=== PATIENT | female | born 1960 | race Hispanic/Latino ===

== ENCOUNTER 2017-05-14 11:00 | Emergency (ER) | payer OTHER, SELFPAY ==
[2017-05-14 12:00] LABS: Hematocrit 44.2 % (36.0-47.0); Mean Platelet Volume 8.5 fL (7.4-10.4); Red Blood Cell (RBC) Count 4.82 mill/uL (4.20-5.40); White Blood Cell (WBC) Count 5.4 thou/uL (4.8-10.8)
[2017-05-14] MEDS ORDERED: Morphine 4 MG/ML VIAL ONE (12:12)
[2017-05-14] MEDS ORDERED: Ondansetron HCl/PF 4 MG/2 ML Vial ONE (12:12)
[2017-05-14 12:13] LABS: ALT (SGPT) 23 U/L (8-55); AST (SGOT) 24 U/L (5-34); Alkaline Phosphatase 120 U/L (40-150); Anion Gap 13 mmol/L (10-20); BUN (Urea Nitrogen) 12 mg/dL (9.8-20.1); Bilirubin, Total 0.4 mg/dL (0.2-1.2); Calc. Creatinine Clearance 0 mL/min (70-130); Calcium 9.7 mg/dL (7.8-10.44); Carbon Dioxide 31 mmol/L (22-29); Chloride 99 mmol/L (98-107); Estimated GFR-MDRD 59; Globulin 4.2 g/dL (2.4-3.5); Protein, Total 7.9 g/dL (6.0-8.3)
[2017-05-14 12:17] LABS: Band 6 % (5-11); Myelocyte 1 % (0-0); Neutrophil 47 % (42-75); Reactive Lymphocytes 2 % (0-10)
--- NOTE | 2017-05-14 12:25 | RAD ---
CHEST ONE VIEW: History: Cough. Comparison: 12-01-05 FINDINGS: Lungs are clear. No pneumothorax or effusion. Cardiac silhouette and mediastinal contours are within normal limits. IMPRESSION: No acute cardiopulmonary process. POS: [facility]
[2017-05-14 12:44] LABS: Lactic Acid - Sepsis 1.6 mmol/L (0.5-2.2)
[2017-05-14 12:53] LABS: Troponin I Less than 0.010 ng/mL (< 0.028)
[2017-05-14 13:25] LABS: Bilirubin Moderate (Negative); Blood, Urine Large (Negative); Glucose, Urine (Dipstick) 500 mg/dL (Negative); Ketone, Urine 15 mg/dL (Negative); Nitrite Negative (Negative); Protein, Urine (Dipstick) 300 mg/dL (Neg-Trace)
[2017-05-14 13:29] LABS: Bacteria/HPF 1+ HPF (None Seen)
[2017-05-14 13:44] LABS: RBC/HPF GREATER THAN 50-TNTC HPF (0-3)
[2017-05-14 13:45] LABS: Hyaline Casts/LPF 0-3 HYALINE CAST LPF (0-3 Hyaline); Renal Epithelial None Seen HPF (0-3); Transitional Epithelial NONE SEEN HPF (0-3)
[2017-05-14] MEDS ORDERED: cefTRIAXone\\ROCEPHIN 2 GM in Sodium Chloride 0.9% 100 ML IVPB SCH (14:00)
--- NOTE | 2017-05-14 14:06 | CT ---
CT ABDOMEN AND PELVIS WITHOUT IV CONTRAST: Indication: Bilateral rib pain and hematuria. Comparison: Prior CT of the abdomen and pelvis dated 05-11-14, 02-23-08, 09-23-14. FINDINGS: The lung bases demonstrate some areas of subsegmental volume loss. Gallbladder is surgically absent. The unopacified liver, spleen, pancreas and adrenal glands are unre markable. There is a tiny 2.5 mm stone involving the inferior pole of the right kidney. There is a 2. 3 cm mixed density mass extending exophytically off the medial aspect of the lower pole of the right kidney. This measure 2.8 cm in its greatest craniocaudal dimension. The lesion has increased in size since 2007. There are some areas of internal macroscopic fat density. 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 No ureteral calculus or hydronephrosis is evident. There is a small calcification seen within the exp ected region of the uterus likely related to post-surgical change of prior partial hysterectomy. Ther e are surgical clips within the right lower quadrant of the abdomen which may reflect prior appendect don. There is a fat containing umbilical hernia. There is no evidence of bowel obstruction. There is some scattered degenerative and osteoarthritic change. No definite acute osseous abnormality is evident. IMPRESSION: 1. Enlarging mixed density mass extending exophytically off the inferior pole of the right kidney wit h areas of internal macroscopic fat suspicious for an enlarging renal angiomyolipoma. This measures u p to 2.8 cm. 2. Right nephrolithiasis. 3. Cholecystectomy, appendectomy, and hysterectomy. POS: ELKE
--- NOTE | 2017-05-16 11:19 | EKG ---
Test Reason : Blood Pressure : / mmHG Vent. Rate : 084 BPM Atrial Rate : 084 BPM P-R Int : 158 ms QRS Dur : 074 ms QT Int : 378 ms P-R-T Axes : 011 026 041 degrees QTc Int : 446 ms Normal sinus rhythm Normal ECG Confirmed by ELVER MAGALLANES M.D. ([id number]), editorial manager LIANG ANDREWS ([id number] on 05/16/2017 11:18:26 AM Referred By: Confirmed By:ELVER MAGALLANES M.D.
== END 2017-05-14 15:35 | disposition home or self-care (01) ==
LOC: ERS 11:00
DX: J10.1 Influenza due to other identified influenza virus with other respiratory manifestations (principal); N12 Tubulo-interstitial nephritis, not specified as acute or chronic; N28.89 Other specified disorders of kidney and ureter; I10 Essential (primary) hypertension; E11.9 Type 2 diabetes mellitus without complications; M19.90 Unspecified osteoarthritis, unspecified site
CPT/HCPCS: 36415; 71010; 74176; 80053; 81003; 81015; 82553; 83605; 83735; 84484; 85025; 87086; 93005; 94640; 96361; 96365; 96375; J0696; J2270; J2405; J7050; J7620

== ENCOUNTER 2017-05-17 08:27 | Emergency (ER) | payer OTHER ==
[2017-05-17] MEDS ORDERED: Ketorolac Tromethamine 30 MG/ML VIAL ONE (08:37)
[2017-05-17] MEDS ORDERED: Fentanyl 100 MCG/2 ML VIAL ONE (08:37)
[2017-05-17 09:25] LABS: Bilirubin Negative (Negative); Blood, Urine Large (Negative); Clarity CLOUDY (Clear); Glucose, Urine (Dipstick) >=1000 mg/dL (Negative); Leukocyte Negative (Negative); Nitrite Negative (Negative); Protein, Urine (Dipstick) 300 mg/dL (Neg-Trace); Specific Gravity, Urine 1.035 (1.002-1.036); Urobilinogen 0.2 mg/dL (0.2-1.0)
[2017-05-17 09:27] LABS: Bacteria/HPF None Seen HPF (None Seen); RBC/HPF GREATER THAN 50-TNTC HPF (0-3)
--- NOTE | 2017-05-17 09:31 | CT ---
CT ABDOMEN NONCONTRAST CT PELVIS NONCONTRAST: (urolithiasis protocol) DATE: 05/17/17. TIME: 8:50 a.m. HISTORY: A 57-year-old female with left flank pain. COMPARISON: 05/14/17. TECHNIQUE: IV injection of iodinated contrast media: none Oral contrast media: none FINDINGS: Other than for urolithiasis, the lack of IV and oral contrast limits the evaluation. There are 2 tiny calculi at a right renal lower pole calyx, one of them located approximately 1 cm ingram perior to the other. The upper one is approximately 2 mm in size while the lower one is approximatel y 1 mm in size. They are difficult to visualize on the axial images, and are instead visible only on the coronal reconstructions. As previously mentioned, again noted is the approximately 2 cm exophytic mass located medial to the r ight renal lower pole parapelvic region with mixed attenuation, predominantly soft tissue attenuation , interspersed with what is probably fat. This has slowly grown since an older CT of 05/11/14. It i s stable since 05/14/17. It may represent an angiomyolipoma. There is no calculus in the left kidney, in the bilateral ureters, or in the decompressed urinary misael dder. There is no hydroureteronephrosis. There are cholecystectomy clips. Surgical clips at the di stal tip of the cecum. Absence of the appendix. There is a greater amount of stool expanding a segm ent of the rectosigmoid junction now compared to 05/14/17. No pneumoperitoneum, ascites, acute colon ic diverticulitis, or small bowel dilation. Within the limitations of a noncontrast scan, no abnorma lity is identified involving the liver, abdominal aorta, left kidney, adrenals, pancreas, or spleen. The lung bases are grossly clear. Uterus is absent. There are surgical clips in the gallbladder fo ssa. IMPRESSION: 1. No obstructive uropathy. 2. Nephrolithiasis consisting of 2 tiny right renal calculi. 3. Exophytic mass arising from the right kidney, slow-growing, probably an angiomyolipoma. 4. Status post appendectomy. 5. A greater volume of stool expanding the rectosigmoid junction compared to 3 days ago. 6. Otherwise, no acute findings. 7. Status post hysterectomy. 8. Status post appendectomy. 9. Status post cholecystectomy. JN R POS: ROGER
[2017-05-17 09:32] LABS: Pathc Cast-AUWi Flag 4.06 (0-2.49)
[2017-05-17 09:34] LABS: #Basophils 0.1 thou/uL (0.0-0.2); #Monocytes 0.4 thou/uL (0.11-0.59); #Neutrophils 2.2 thou/uL (1.40-6.50); %Eosinophils 0.9 % (0.0-10.0); %Lymphocytes 42.1 % (21.0-51.0); %Monocytes 8.9 % (0.0-10.0); %Neutrophils 46.2 % (42.0-75.0); Hemoglobin 13.7 g/dL (12.0-16.0); Mean Corpuscular HGB CONC 32.1 g/dL (32.0-36.0); Mean Corpuscular Hemoglobin 29.4 pg (27.0-31.0); Mean Corpuscular Volume 91.6 fl (81.0-99.0); Mean Platelet Volume 8.6 fL (7.4-10.4); Platelet Count 175 thou/uL (130-400); RBC Distribution Width 13.2 % (11.5-14.5); Red Blood Cell (RBC) Count 4.67 mill/uL (4.20-5.40); White Blood Cell (WBC) Count 4.8 thou/uL (4.8-10.8)
[2017-05-17 09:45] LABS: Hyaline Casts/LPF 0-3 HYALINE CAST LPF (0-3 Hyaline); Manual Microscopic Reviewed? No Path Casts Seen; Yeast-All Forms Rare HPF (None Seen)
[2017-05-17] MEDS ORDERED: Fleet Enema 133 ML BOT FS ONE (09:45)
[2017-05-17 10:01] LABS: ALT (SGPT) 23 U/L (8-55); AST (SGOT) 25 U/L (5-34); Albumin 3.4 g/dL (3.5-5.0); Alkaline Phosphatase 130 U/L (40-150); Anion Gap 16 mmol/L (10-20); BUN (Urea Nitrogen) 16 mg/dL (9.8-20.1); Bilirubin, Total 0.3 mg/dL (0.2-1.2); Calc. Creatinine Clearance 0 mL/min (70-130); Carbon Dioxide 24 mmol/L (22-29); Chloride 103 mmol/L (98-107); Estimated GFR-MDRD 57; Glucose 362 mg/dL (70-105); Lipase 47 U/L (8-78); Potassium 3.9 mmol/L (3.5-5.1); Protein, Total 7.4 g/dL (6.0-8.3); Sodium 139 mmol/L (136-145)
== END 2017-05-17 11:18 | disposition home or self-care (01) ==
LOC: ERS 08:27
DX: K59.00 Constipation, unspecified (principal); M19.90 Unspecified osteoarthritis, unspecified site; E11.9 Type 2 diabetes mellitus without complications; I10 Essential (primary) hypertension
CPT/HCPCS: 36415; 74176; 80053; 81003; 81015; 83690; 85025; 87086; 96361; 96374; 96375; J1885; J3010

== ENCOUNTER 2025-05-06 00:14 | Emergency (ER) | payer OTHER ==
[2025-05-06 00:53] LABS: Bacteria/HPF None Seen HPF (None Seen); CAUTI Indications for Culture Pelvic or flank pain; Glucose, Urine (Dipstick) 500 mg/dL (Negative); Leukocyte 75 Leu/uL (Negative); Protein, Urine (Dipstick) 200 mg/dL (Neg-Trace); RBC/HPF 0-3 HPF (0-3); Specific Gravity, Urine 1.015 (1.002-1.036)
[2025-05-06 00:54] LABS: Urine Culture Reflex Yes Yes
[2025-05-06] MEDS ORDERED: Ketorolac Tromethamine 30 MG (1 mL) VIAL ONE (01:12)
[2025-05-06] MEDS ORDERED: Ondansetron PF 4 MG/2 ML Vial ONE (01:13)
[2025-05-06 01:56] LABS: #Basophils 0.03 10x3/uL (0.0-0.2); #Eosinophils 0.31 10x3/uL (0.0-0.7); #Monocytes 0.93 10x3/uL (0.11-0.59); #Neutrophils 7.16 10x3/uL (1.40-6.50); %Basophils 0.3 % (0.0-1.0); %Eosinophils 2.7 % (0.0-10.0); %Lymphocytes 25.7 % (21.0-51.0); %Monocytes 8.2 % (0.0-10.0); %Neutrophils 62.8 % (42.0-75.0); Hematocrit 42.1 % (36.0-47.0); Hemoglobin 13.1 g/dL (12.0-16.0); Mean Corpuscular Hemoglobin 28.2 pg (27.0-31.0); Mean Corpuscular Volume 90.5 fL (78.0-98.0); Platelet Count 218 10x3/uL (130-400); Red Blood Cell (RBC) Count 4.65 mill/uL (4.20-5.40); White Blood Cell (WBC) Count 11.38 10x3/uL (4.8-10.8)
[2025-05-06 02:11] LABS: ALT (SGPT) 14 U/L (Less than 34); AST (SGOT) 33 U/L (11-34); Albumin 3.6 g/dL (3.1-4.5); Alkaline Phosphatase 167 U/L (40-110); Anion Gap 15 mmol/L (10-20); BUN (Urea Nitrogen) 39 mg/dL (9.8-20.1); Bilirubin, Total 0.2 mg/dL (0.3-1.2); Calc. Creatinine Clearance 0 mL/min (70-130); Calcium 9.4 mg/dL (7.8-10.44); Carbon Dioxide 21 mmol/L (23-31); Chloride 108 mmol/L (98-107); Globulin 4.1 g/dL (2.4-3.5); Glucose 269 mg/dL (80-115); Lipase 76 U/L (8-78); Potassium 5.4 mmol/L (3.5-5.1); Sodium 139 mmol/L (136-145)
[2025-05-06] MEDS ORDERED: cefTRIAXone (ROCEPHIN) 1 GM VIAL ONE (03:05)
[2025-05-06 05:42] LABS: ALT (SGPT) 12 U/L (Less than 34); AST (SGOT) 15 U/L (11-34); Albumin 2.9 g/dL (3.1-4.5); Alkaline Phosphatase 134 U/L (40-110); Anion Gap 12 mmol/L (10-20); BUN (Urea Nitrogen) 36 mg/dL (9.8-20.1); Bilirubin, Total 0.1 mg/dL (0.3-1.2); Calc. Creatinine Clearance 0 mL/min (70-130); Calcium 8.1 mg/dL (7.8-10.44); Carbon Dioxide 20 mmol/L (23-31); Chloride 112 mmol/L (98-107); Globulin 2.9 g/dL (2.4-3.5); Glucose 221 mg/dL (80-115); Potassium 5.1 mmol/L (3.5-5.1); Sodium 139 mmol/L (136-145)
[2025-05-06 06:46] LABS: #Basophils 0.05 10x3/uL (0.0-0.2); #Eosinophils 0.29 10x3/uL (0.0-0.7); #Monocytes 0.69 10x3/uL (0.11-0.59); #Neutrophils 6.30 10x3/uL (1.40-6.50); %Basophils 0.5 % (0.0-1.0); %Eosinophils 2.8 % (0.0-10.0); %Lymphocytes 28.3 % (21.0-51.0); %Monocytes 6.7 % (0.0-10.0); %Neutrophils 61.5 % (42.0-75.0); Hematocrit 36.2 % (36.0-47.0); Hemoglobin 11.5 g/dL (12.0-16.0); Mean Corpuscular Hemoglobin 28.7 pg (27.0-31.0); Mean Corpuscular Volume 90.3 fL (78.0-98.0); Platelet Count 173 10x3/uL (130-400); Red Blood Cell (RBC) Count 4.01 mill/uL (4.20-5.40); White Blood Cell (WBC) Count 10.25 10x3/uL (4.8-10.8)
== END 2025-05-06 07:45 | disposition home or self-care (01) ==
LOC: ERS 00:14
DX: K42.9 Umbilical hernia without obstruction or gangrene (principal); I12.9 Hypertensive chronic kidney disease with stage 1 through stage 4 chronic kidney disease, or unspecified chronic kidney disease; E11.22 Type 2 diabetes mellitus with diabetic chronic kidney disease; N18.9 Chronic kidney disease, unspecified; N17.9 Acute kidney failure, unspecified; N39.0 Urinary tract infection, site not specified; E03.9 Hypothyroidism, unspecified; Z79.890 Hormone replacement therapy; Z79.84 Long term (current) use of oral hypoglycemic drugs; Z79.899 Other long term (current) drug therapy
CPT/HCPCS: 74176; 80053 ×2; 81001; 83690; 84484; 85025 ×2; 87086; 93005; J0696; J1885; J2270; J2405; 96361; 96374; 96375